=== PATIENT | female | born 1970 | race Asian ===

== ENCOUNTER → 2018-07-26 | Day surgery (SDC) | payer OTHER ==
--- NOTE | 2018-07-26 16:30 | OP ---
DATE OF OPERATION: 07/26/2018 PREOPERATIVE DIAGNOSIS: Abnormal left mammography. POSTOPERATIVE DIAGNOSIS: Abnormal left mammography. PROCEDURE: Left attempted stereotactic biopsy. . The patient had a routine screening mammogram that noted clustering microcalcifications in the anterior upper inner left breast. We put her on the [place] table. Using several different approaches, these calcifications appeared to be in the skin. Therefore, we took her off the table and did views that do show that these calcifications are in the skin. Therefore, no biopsy was performed. She will return to routine screening and have an annual mammography. NOA CAREY M.D. [id number]
== END | disposition home or self-care (01) ==
LOC: FMAMMOTONE 11:57
PROVIDERS: ATTEND Surgery
PROC: 0HBU3ZX Excision of Left Breast, Percutaneous Approach, Diagnostic (ICD-10-PCS; principal; 2018-07-26)
DX: R92.8 Other abnormal and inconclusive findings on diagnostic imaging of breast (principal); Z53.8 Procedure and treatment not carried out for other reasons
CPT/HCPCS: 19081